=== PATIENT | female | born 1965 | race Caucasian/White ===

== ENCOUNTER 2022-03-31 16:38 | Inpatient (IN) | payer SELFPAY ==
[2022-03-31] MEDS ORDERED: Benzonatate 100 MG CAP ONE (17:36)
[2022-03-31 18:01] LABS: Anion Gap 25 mmol/L (10-20); BUN (Urea Nitrogen) 24 mg/dL (9.8-20.1); Calc. Creatinine Clearance 0 mL/min (70-130); Calcium 9.1 mg/dL (7.8-10.44); Chloride 111 mmol/L (98-107); Estimated GFR 34; Sodium 140 mmol/L (136-145)
[2022-03-31] MEDS ORDERED: Ondansetron PF 4 MG/2 ML Vial ONE (18:06)
[2022-03-31 18:13] LABS: Carbon Dioxide 8 mmol/L (22-29); Glucose 429 mg/dL (70-105)
[2022-03-31] MEDS ORDERED: D5 1/2 NS w/20 mEq KCL 1,000 ML IV PRN (19:45)
[2022-03-31] MEDS ORDERED: Electrolyte Replacement Protocol FS PRN (19:45)
[2022-03-31] MEDS ORDERED: Dextrose 5% in Water 1,000 ML IV PRN (19:45)
[2022-03-31] MEDS ORDERED: Dextrose 50% Abboject 50 ML SYRINGE SLOW IVP PRN (19:45)
[2022-03-31] MEDS ORDERED: HUMULIN R 100 UNITS in Sodium Chloride 0.9% 100 ML IVPB SCH ×2 (19:45→19:48)
[2022-03-31] MEDS ORDERED: Dextrose 5 %-0.45 % NaCl 1,000 ML IV PRN ×2 (19:45→19:48)
[2022-03-31] MEDS ORDERED: NS 0.9% w/ 20 MEQ KCL 1,000 ML/1,000 ML BAG IV PRN ×2 (19:45)
[2022-03-31] MEDS ORDERED: Sodium Chloride 0.9% 1,000 ML IV PRN ×8 (19:45→19:48)
[2022-03-31] MEDS ORDERED: Ondansetron PF 4 MG/2 ML Vial IVP PRN (19:48)
[2022-03-31] MEDS ORDERED: Sodium Bicarb 50 MEQ/50 ML Abboject 8.4% SYRINGE IVP SCH (19:48)
[2022-03-31] MEDS ORDERED: Acetaminophen 650 MG Suppository PR PRN (19:48)
[2022-03-31] MEDS ORDERED: HYDROcodone/Acetaminophen 5/325 mg Tablet PO PRN (19:48)
[2022-03-31] MEDS ORDERED: NS 0.9% w/ 20 MEQ KCL 1,000 ML IV PRN ×2 (19:48)
[2022-03-31] MEDS ORDERED: Electrolyte Replacement Protocol 1 EACH IVPB ONE (19:48)
[2022-03-31] MEDS: D5 1/2 NS w/20 mEq KCL 1,000 ML IV PRN (20:15)
[2022-03-31] MEDS ORDERED: Sodium Bicarb 50 MEQ/50 ML VIAL IVP SCH (20:30)
[2022-03-31 20:56] LABS: Anion Gap 16 mmol/L (10-20); BUN (Urea Nitrogen) 23 mg/dL (9.8-20.1); Calc. Creatinine Clearance 56 mL/min (70-130); Calcium 8.9 mg/dL (7.8-10.44); Carbon Dioxide 15 mmol/L (22-29); Chloride 114 mmol/L (98-107); Estimated GFR 37; Glucose 261 mg/dL (70-105); Potassium 3.8 mmol/L (3.5-5.1); Sodium 141 mmol/L (136-145)
[2022-03-31] MEDS ORDERED: Vancomycin HCl 750 MG in Sodium Chloride 0.9% 250 ML 250 ML IVPB SCH (21:00)
[2022-03-31 21:03] LABS: Hemoglobin A1c Greater than 14.0 % (4.0-6.0)
[2022-04-01 00:24] LABS: Anion Gap 16 mmol/L (10-20); BUN (Urea Nitrogen) 21 mg/dL (9.8-20.1); Calc. Creatinine Clearance 64 mL/min (70-130); Calcium 8.5 mg/dL (7.8-10.44); Carbon Dioxide 15 mmol/L (22-29); Chloride 116 mmol/L (98-107); Estimated GFR 44; Glucose 244 mg/dL (70-105); Potassium 4.1 mmol/L (3.5-5.1); Sodium 143 mmol/L (136-145)
[2022-04-01] MEDS: D5 1/2 NS w/20 mEq KCL 1,000 ML IV PRN ×2 (00:37→09:15)
[2022-04-01] MEDS: Cefepime 1 GM in Sodium Chloride 0.9% 100 ML IVPB SCH ×2 (00:37→12:12)
[2022-04-01 04:18] LABS: Anion Gap 12 mmol/L (10-20); BUN (Urea Nitrogen) 19 mg/dL (9.8-20.1); Calc. Creatinine Clearance 69 mL/min (70-130); Calcium 8.4 mg/dL (7.8-10.44); Carbon Dioxide 19 mmol/L (22-29); Chloride 115 mmol/L (98-107); Estimated GFR 48; Glucose 205 mg/dL (70-105); Potassium 3.6 mmol/L (3.5-5.1); Sodium 142 mmol/L (136-145)
[2022-04-01 04:30] LABS: #Lymphocytes 1.3 thou/uL (1.20-3.40); #Monocytes 0.6 thou/uL (0.11-0.59); #Neutrophils 11.7 thou/uL (1.40-6.50); %Basophils 0.1 % (0.0-1.0); %Eosinophils 0.3 % (0.0-10.0); %Lymphocytes 9.6 % (21.0-51.0); %Monocytes 4.1 % (0.0-10.0); Mean Corpuscular HGB CONC 32.9 g/dL (32.0-36.0); Mean Corpuscular Hemoglobin 28.5 pg (27.0-31.0); Mean Corpuscular Volume 86.5 fl (78.0-98.0); Mean Platelet Volume 8.4 fL (7.4-10.4); Platelet Count 299 10x3/uL (130-400); RBC Distribution Width 12.9 % (11.5-14.5); Red Blood Cell (RBC) Count 4.21 mill/uL (4.20-5.40); White Blood Cell (WBC) Count 13.7 10x3/uL (4.8-10.8)
[2022-04-01] MEDS: Benzonatate 100 MG CAP PO PRN ×3 (06:29→21:44)
[2022-04-01 08:16] LABS: Anion Gap 13 mmol/L (10-20); BUN (Urea Nitrogen) 18 mg/dL (9.8-20.1); Calc. Creatinine Clearance 85 mL/min (70-130); Calcium 8.5 mg/dL (7.8-10.44); Carbon Dioxide 19 mmol/L (22-29); Chloride 115 mmol/L (98-107); Estimated GFR 62; Glucose 87 mg/dL (70-105); Potassium 3.7 mmol/L (3.5-5.1); Sodium 143 mmol/L (136-145)
[2022-04-01] MEDS: Enoxaparin Sodium 40 MG/0.4 ML SYRINGE SC SCH (09:12)
[2022-04-01] MEDS: Acetaminophen 325 MG TAB PO PRN (10:26)
[2022-04-01 10:44] VITALS: BMI 40.4
[2022-04-01] MEDS ORDERED: HumaLOG 300 UNITS/3 ML VIAL SC PRN (10:44)
[2022-04-01] MEDS ORDERED: Dextrose 5% in Water 1,000 ML IV PRN (10:44)
[2022-04-01] MEDS ORDERED: Dextrose 50% Abboject 50 ML SYRINGE SLOW IVP PRN (10:44)
[2022-04-01] MEDS ORDERED: Insulin Glargine 30 UNITS/0.3 ML VIAL SC STA (11:26)
[2022-04-01] MEDS: Sodium Chloride 0.9% 1,000 ML IV SCH ×2 (12:08→21:39)
[2022-04-01] MEDS: HumaLOG 300 UNITS/3 ML VIAL SC PRN (16:55)
[2022-04-01] MEDS ORDERED: VANCOMYCIN 1.25 GM/250 ML BAG 1.25 GM in Premix Bag 1 BAG IVPB SCH (21:00)
[2022-04-01] MEDS: Famotidine 20 MG TAB PO SCH (21:44)
[2022-04-01] MEDS: HumuLIN 70/30 (300 UNITS/3 ML VIAL) SC SCH (21:46)
[2022-04-02] MEDS: Cefepime 1 GM in Sodium Chloride 0.9% 100 ML IVPB SCH (01:11)
[2022-04-02] MEDS: Acetaminophen 325 MG TAB PO PRN (01:11)
[2022-04-02 05:22] LABS: #Eosinphils 0.2 thou/uL (0.0-0.7); #Monocytes 0.6 thou/uL (0.11-0.59); #Neutrophils 5.2 thou/uL (1.40-6.50); %Basophils 0.5 % (0.0-1.0); %Eosinophils 2.3 % (0.0-10.0); %Lymphocytes 25.4 % (21.0-51.0); %Neutrophils 64.8 % (42.0-75.0); Hemoglobin 10.4 g/dL (12.0-16.0); Mean Corpuscular HGB CONC 32.5 g/dL (32.0-36.0); Mean Corpuscular Hemoglobin 28.7 pg (27.0-31.0); Mean Corpuscular Volume 88.3 fl (78.0-98.0); Mean Platelet Volume 8.1 fL (7.4-10.4); Platelet Count 239 10x3/uL (130-400); RBC Distribution Width 13.1 % (11.5-14.5); Red Blood Cell (RBC) Count 3.61 mill/uL (4.20-5.40); White Blood Cell (WBC) Count 7.9 10x3/uL (4.8-10.8)
[2022-04-02] MEDS: Benzonatate 100 MG CAP PO PRN (05:51)
[2022-04-02 05:57] LABS: Anion Gap 10 mmol/L (10-20); BUN (Urea Nitrogen) 7 mg/dL (9.8-20.1); Calc. Creatinine Clearance 130 mL/min (70-130); Calcium 7.9 mg/dL (7.8-10.44); Carbon Dioxide 21 mmol/L (22-29); Chloride 112 mmol/L (98-107); Estimated GFR 102; Glucose 122 mg/dL (70-105); Sodium 140 mmol/L (136-145)
[2022-04-02] MEDS ORDERED: Levothyroxine Sodium 125 MCG TAB PO SCH (06:00)
[2022-04-02 08:41] VITALS: BP 134/69; TEMP 98.3
[2022-04-02] MEDS ORDERED: Bupropion 150 MG SR TAB PO SCH (09:00)
[2022-04-02] MEDS: Enoxaparin Sodium 40 MG/0.4 ML SYRINGE SC SCH (09:20)
[2022-04-02] MEDS: HumuLIN 70/30 (300 UNITS/3 ML VIAL) SC SCH (09:21)
[2022-04-02] MEDS: Famotidine 20 MG TAB PO SCH (09:21)
[2022-04-02] MEDS: Sodium Chloride 0.9% 1,000 ML IV SCH (09:22)
[2022-04-02] MEDS: HumaLOG 300 UNITS/3 ML VIAL SC PRN (11:52)
== END 2022-04-02 13:20 | disposition home or self-care (01) | DRG 638 ==
LOC: ERS 16:38 → IMCU/EMU 17:53 → MSONC 04-01 17:47
PROVIDERS: ADMIT Internal Medicine; ATTEND Internal Medicine
DX: E11.10 Type 2 diabetes mellitus with ketoacidosis without coma (principal); N17.9 Acute kidney failure, unspecified; Z68.41 Body mass index [BMI] 40.0-44.9, adult; Z20.822 Contact with and (suspected) exposure to COVID-19; I10 Essential (primary) hypertension; E03.9 Hypothyroidism, unspecified; E78.00 Pure hypercholesterolemia, unspecified; E86.0 Dehydration; E66.01 Morbid (severe) obesity due to excess calories; Z90.09 Acquired absence of other part of head and neck; Z90.710 Acquired absence of both cervix and uterus; Z88.8 Allergy status to other drugs, medicaments and biological substances; Z79.4 Long term (current) use of insulin; Z91.14 Patient's other noncompliance with medication regimen
CPT/HCPCS: 36415; 36416; 80048; 82010; 83036; 85025; 96374; J0692; J1650; J1815; J2405; J3370; J3480; J3490; J7050